=== PATIENT | male | born 1990 | race Two or more races ===

== ENCOUNTER 2020-10-10 11:36 | Emergency (ER) | payer SELFPAY ==
[~2020-10-10] VITALS: Ht 175.3 cm; Wt 93.0 kg
--- NOTE | 2020-10-10 12:00 | NUR ---
SUTURES REMOVED PER ER MD ORDER, WITHOUT DIFFICULTY. WOUND SITE INTACT AND CLEAN, NO SIGN OF INFECTION
== END 2020-10-10 12:15 | disposition home or self-care (01) ==
LOC: ER 11:36
DX: S61.412D Laceration without foreign body of left hand, subsequent encounter (principal); W45.8XXD Other foreign body or object entering through skin, subsequent encounter
CPT/HCPCS: A4663